=== PATIENT | female | born 1970 | race Caucasian/White ===

== ENCOUNTER 2021-08-08 06:31 | Day surgery (SDC) | payer OTHER ==
[2021-08-07 10:38] VITALS: BMI 35.4
[2021-08-08] MEDS ORDERED: LIDOCAINE 1% P/F 10 MG/ML VIAL ONE (07:08)
[2021-08-08] MEDS ORDERED: TETRACAINE 0.5% OPHTH SOLN 2 ML BOTTLE ONE (07:09)
[2021-08-08] MEDS ORDERED: BSS (NA/CA/MG/K) BALANCED SALT SOLUTION OPHTH SOLN 15 ML BOTTLE ONE ×2 (07:09→07:36)
[2021-08-08] MEDS ORDERED: CARBACHOL 0.01% INTRA-OCULAR 1.5 ML VIAL ONE (07:10)
[2021-08-08] MEDS ORDERED: NEO/POLYMYX B SULF/DEXAMETH OPHTHALMIC 5ML BOTTLE ONE (07:10)
[2021-08-08] MEDS: CIPROFLOXACIN 0.3% EYE DROPS 5 ML BOTTLE ONE ×3 (07:14→07:24)
[2021-08-08] MEDS: PHENYLEPHRINE 2.5% OPHTH SOLN 15 ML BOTTLE ONE ×3 (07:14→07:24)
[2021-08-08] MEDS: TROPICAMIDE 1% OPHTH SOLN 15 ML BOTTLE ONE ×3 (07:14→07:24)
[2021-08-08] MEDS: CYCLOPENTOLATE 2% OPHTH SOLN 2 ML BOTTLE ONE ×3 (07:14→07:24)
[2021-08-08] MEDS ORDERED: EPINEPHrine/PF 1 MG/1 ML (1:1,000) AMPULE ONE (07:17)
[2021-08-08 07:21] VITALS: TEMP 97.8
[2021-08-08] MEDS ORDERED: MIDAZOLAM HCL 2 MG/2 ML SINGLE DOSE VIAL ONE (08:20)
[2021-08-08 09:12] VITALS: BP 135/81; PULSE 81
== END 2021-08-08 09:28 | disposition home or self-care (01) ==
LOC: FASU 06:31
PROVIDERS: ATTEND Ophthalmology
PROC: 08RK3JZ Replacement of Left Lens with Synthetic Substitute, Percutaneous Approach (ICD-10-PCS; principal; 2021-08-08 08:27)
DX: H26.8 Other specified cataract (principal)
CPT/HCPCS: 81025

== ENCOUNTER 2021-09-26 07:37 | Day surgery (SDC) | payer OTHER ==
[2021-09-25 14:32] VITALS: BMI 35.4
[2021-09-26] MEDS: CIPROFLOXACIN 0.3% EYE DROPS 5 ML BOTTLE ONE ×3 (08:20→08:30)
[2021-09-26] MEDS: CYCLOPENTOLATE 2% OPHTH SOLN 2 ML BOTTLE ONE ×3 (08:20→08:30)
[2021-09-26] MEDS: PHENYLEPHRINE 2.5% OPHTH SOLN 15 ML BOTTLE ONE ×3 (08:20→08:30)
[2021-09-26] MEDS: TROPICAMIDE 1% OPHTH SOLN 15 ML BOTTLE ONE ×3 (08:20→08:30)
[2021-09-26 08:29] VITALS: TEMP 97.9
[2021-09-26] MEDS ORDERED: TETRACAINE 0.5% OPHTH SOLN 2 ML BOTTLE ONE (09:23)
[2021-09-26] MEDS ORDERED: BSS (NA/CA/MG/K) BALANCED SALT SOLUTION OPHTH SOLN 15 ML BOTTLE ONE (09:23)
[2021-09-26] MEDS ORDERED: LIDOCAINE 1% P/F 10 MG/ML VIAL ONE (09:23)
[2021-09-26] MEDS ORDERED: NEO/POLYMYX B SULF/DEXAMETH OPHTHALMIC 5ML BOTTLE ONE (09:23)
[2021-09-26] MEDS ORDERED: CARBACHOL 0.01% INTRA-OCULAR 1.5 ML VIAL ONE (09:23)
[2021-09-26] MEDS ORDERED: MIDAZOLAM HCL 2 MG/2 ML SINGLE DOSE VIAL ONE (09:40)
[2021-09-26 11:09] VITALS: BP 131/77; PULSE 75
== END 2021-09-26 10:50 | disposition home or self-care (01) ==
LOC: FASU 07:37
PROVIDERS: ATTEND Ophthalmology
PROC: 08RJ3JZ Replacement of Right Lens with Synthetic Substitute, Percutaneous Approach (ICD-10-PCS; principal; 2021-09-26 09:42)
DX: H26.8 Other specified cataract (principal)
CPT/HCPCS: 81025

== ENCOUNTER 2023-09-05 20:36 | Emergency (ER) | payer BC, OTHER ==
[2023-09-05 20:58] VITALS: BP 126/83; PULSE 115; RESP 18; BMI 35.5
[2023-09-05] MEDS ORDERED: ONDANSETRON 4 MG/2 ML VIAL IVPUSH ONE (21:05)
[2023-09-05] MEDS ORDERED: ACETAMINOPHEN 1000 MG/100 ML BAG IVPB ONE (21:05)
[2023-09-05] MEDS ORDERED: SODIUM CHLORIDE 0.9% 500 ML INFUS.BAG IV ONE (21:06)
[2023-09-05] MEDS ORDERED: ACETAMINOPHEN INJECTION 100 ML IVPB ONE (21:10)
[2023-09-05] MEDS ORDERED: ONDANSETRON 4 MG/2 ML VIAL ONE (21:10)
[2023-09-05 21:26] LABS: HEMATOCRIT 38.1 % (32.4-45.2); HEMOGLOBIN 13.2 G/dL (10.7-15.3); MCH 29.8 pg (25.7-33.7); MCHC 34.6 g/dl (32.0-36.0); MEAN CELL VOLUME 86.2 fl (80-96); MEAN PLT VOLUME 9.6 fl (7.5-11.1); PLATELET COUNT 231.1 10^3/uL (134-434); RBC 4.42 10^6/uL (3.60-5.2); RDW 14.3 % (11.6-15.6); WHITE BLOOD COUNT 9.2 10^3/uL (4.0-10.8)
[2023-09-05 21:46] LABS: BILIRUBIN,TOTAL 0.5 mg/dl (0.2-1); CREATININE 0.8 mg/dl (0.6-1.3); POTASSIUM 4.4 mmol/L (3.5-5.1); TOT PROT 6.8 g/dl (6.4-8.2)
[2023-09-05 22:18] LABS: PLATELET ESTIMATE ADEQUATE
[2023-09-05 23:55] VITALS: TEMP 98.7
== END 2023-09-06 | disposition home or self-care (01) ==
LOC: FER 20:36
PROC: 3E033NZ Introduction of Analgesics, Hypnotics, Sedatives into Peripheral Vein, Percutaneous Approach (ICD-10-PCS; principal; 2023-09-05)
PROC: 3E033GC Introduction of Other Therapeutic Substance into Peripheral Vein, Percutaneous Approach (ICD-10-PCS; 2023-09-05)
DX: R11.2 Nausea with vomiting, unspecified (principal); R50.9 Fever, unspecified; U07.1 COVID-19
CPT/HCPCS: 36415; 80053; 85027; 99284-25